=== PATIENT | male | born 1975 | race Native Hawaiian/Other Pacific Islander ===

== ENCOUNTER 2020-11-14 08:46 | Emergency (ER) | payer OTHER ==
[~2020-11-14] VITALS: Ht 180.3 cm; Wt 77.1 kg
[2020-11-14 09:02] VITALS: BP 119/83; TEMP 98.9
== END 2020-11-14 10:26 | disposition home or self-care (01) ==
LOC: ED 08:46
PROC: 0HCFXZZ Extirpation of Matter from Right Hand Skin, External Approach (ICD-10-PCS; principal; 2020-11-14)
DX: S61.041A Puncture wound with foreign body of right thumb without damage to nail, initial encounter (principal); W45.8XXA Other foreign body or object entering through skin, initial encounter; Y92.89 Other specified places as the place of occurrence of the external cause
CPT/HCPCS: 90472; 90715; 99283

== ENCOUNTER 2021-07-10 13:42 | Outpatient (CLI) | payer OTHER | END 2021-07-10 19:19 | disposition home or self-care (01) | LOC: RAD 13:42 | PROVIDERS: ATTEND Nurse Practitioner Family | DX: R05.3 Chronic cough (principal) ==

== ENCOUNTER → 2022-01-21 | Outpatient (CLI) | payer OTHER | LOC: RESP 09:30 | PROVIDERS: ATTEND Nurse Practitioner Family | DX: R05.3 Chronic cough (principal) ==